=== PATIENT | male | born 1965 | race Caucasian/White ===

== ENCOUNTER 2021-09-04 00:15 | Emergency (ER) | payer OTHER ==
[~2021-09-04] VITALS: Ht 177.8 cm; Wt 154.2 kg
[2021-09-04 00:55] LABS: ABSOLUTE BASOPHILS 0.1 thou/uL (0.0-0.2); ABSOLUTE EOSINOPHILS 0.3 thou/uL (0.0-0.7); ABSOLUTE LYMPHOCYTES 1.7 thou/uL (0.8-5.3); ABSOLUTE MONOCYTES 0.7 thou/uL (0.0-1.2); ABSOLUTE NEUTROPHILS 3.5 thou/uL (1.6-8.1); BASOPHILS 1.3 %; EOSINOPHILS 4.1 %; HEMATOCRIT 41.3 % (42.0-52.0); HEMOGLOBIN 14.1 gm/dL (14.0-18.0); LYMPHOCYTES 27.8 %; MCH 27.6 pg (26.0-34.0); MCV 81.1 fL (80.0-100.0); MONOCYTES 10.6 %; MPV 8.5 fl. (7.2-11.1); NUCLEATED RBCS 0 /100WBC; PLATELET COUNT* 216 thou/uL (150-400); POLYS 56.2 %; RDW-CV 16.2 % (10.5-14.5); WBC 6.2 thou/uL (4.0-11.0)
[2021-09-04 01:07] LABS: APTT 25.9 Seconds (25.0-31.3); PROTIME 10.3 Seconds (9.20-11.50)
[2021-09-04 01:14] LABS: CALCIUM 8.6 mg/dL (8.5-10.1); CREATININE 1.1 mg/dL (0.6-1.3); POTASSIUM 4.6 mmol/L (3.5-5.1)
[2021-09-04 01:18] LABS: ALBUMIN 3.4 g/dL (3.4-5.0); TOTAL BILIRUBIN 0.3 mg/dL (<0.1-1.0); TOTAL PROTEIN 6.2 g/dL (6.4-8.2)
[2021-09-04 04:33] VITALS: BP 151/79
--- NOTE | 2021-09-04 11:20 | EKG ---
[place] [address] ELECTROCARDIOGRAM REPORT Name: AILEEN SINGLETARY Room: 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: [place] : [id number] Requested By: Jacqueline Reis Order Number: [id number] MD: Nate Greenberg Measurements Intervals [place] Rate: 57 P: 23 CT: 213 QRS: 18 QRSD: 100 T: 58 QT: 385 QTc: 375 Interpretive Statements Sinus rhythm Prolonged CT interval Low voltage, precordial leads Abnormal R-wave progression, late transition ST elev, probable normal early repol pattern No previous ECG available for comparison Electronically Signed On 09-04-2021 11:20:45 CDT by Nate Greenberg [email or web address] <ELECTRONICALLY SIGNED> By: Nate Greenberg MD, FACC 09/04/21 1120 0014 0014 Nate Greenberg MD, FAC /EPI
== END 2021-09-04 04:34 | disposition home or self-care (01) ==
LOC: M.ERS 00:15 → EDBD 00:15 → M.ERS 04:34
PROVIDERS: Personal Emergency Response Attendant
DX: R07.89 Other chest pain (principal)